=== PATIENT | female | born 2000 | race Hispanic/Latino ===

== ENCOUNTER 2022-07-08 10:00 | Emergency (ER) | payer OTHER ==
[~2022-07-08] VITALS: Ht 165.1 cm; Wt 74.5 kg
[2022-07-08 10:21] LABS: URINE BILIRUBIN - DIPSTICK NEGATIVE (NEGATIVE); URINE BLOOD DIPSTICK LARGE (NEGATIVE); URINE COLOR YELLOW; URINE GLUCOSE - DIPSTICK NEGATIVE (NEGATIVE); URINE KETONE NEGATIVE (NEGATIVE); URINE PH 6.5 (4.5-8.0); URINE PROTEIN - DIPSTICK NEGATIVE (NEG-TRACE); URINE SPECIFIC GRAVITY <=1.005; URINE UROBILINOGEN - DIPSTICK 0.2 E.U./dL (0.2)
[2022-07-08 10:22] LABS: URINE LEUK ESTERASE MODERATE (NEGATIVE); URINE NITRITE - DIPSTICK NEGATIVE (Negative)
[2022-07-08 10:34] LABS: URINE SQUAMOUS EPITHELIAL CELL FEW EPI/hpf (0-FEW); URINE TRANSITIONAL EPI. CELLS RARE hpf
[2022-07-08 10:43] VITALS: BP 121/81
[2022-07-08] MEDS ORDERED: NITROFURANTN100 M2 PO (10:45)
== END 2022-07-08 10:59 | disposition home or self-care (01) | DRG 690 ==
LOC: ED 10:00
PROVIDERS: Family Medicine
DX: N39.0 Urinary tract infection, site not specified (principal)

== ENCOUNTER 2022-11-15 20:21 | Emergency (ER) | payer OTHER ==
[~2022-11-15] VITALS: Ht 165.1 cm; Wt 69.0 kg
[~2022-11-15 20:21] MED LIST: NITROFURANTN100 M2 PO
[2022-11-15 20:36] VITALS: BP 134/82
[2022-11-15 21:00] VITALS: BP 139/76
[2022-11-15 21:39] LABS: URINE BILIRUBIN - DIPSTICK NEGATIVE (NEGATIVE); URINE BLOOD DIPSTICK MODERATE (NEGATIVE); URINE COLOR YELLOW; URINE GLUCOSE - DIPSTICK NEGATIVE (NEGATIVE); URINE KETONE NEGATIVE (NEGATIVE); URINE LEUK ESTERASE NEGATIVE (NEGATIVE); URINE PROTEIN - DIPSTICK NEGATIVE (NEG-TRACE); URINE UROBILINOGEN - DIPSTICK 0.2 E.U./dL (0.2)
[2022-11-15 21:40] LABS: URINE NITRITE - DIPSTICK NEGATIVE (Negative)
[2022-11-15 21:43] LABS: BASO% 0.4 % (0-3); EOS% 2.6 % (0-8); HEMATOCRIT 38.3 % (37.0-47.0); HEMOGLOBIN 12.5 g/dl (12.0-16.0); IMMATURE GRANULOCYTES 0.2 % (0.0-5.0); LYMPH% 29.2 % (15-41); MEAN CELL VOLUME 82.7 fL CALC (80.0-100.0); MEAN CORPUSCULAR HGB CONC 32.6 g/dL CAL (32.0-36.0); MONO% 6.4 % (2-13); NEUT# 6.41 thou/uL (2.00-7.15); NEUT% 61.2 % (42-76); RED BLOOD COUNT 4.63 mill/uL (4.20-5.60)
[2022-11-15 21:45] LABS: URINE RBC 0-2 RBC/hpf (0-5); URINE SQUAMOUS EPITHELIAL CELL FEW EPI/hpf (0-FEW)
[2022-11-15 21:50] LABS: ALBUMIN 4.6 g/dL (3.2-5.0); ALKALINE PHOSPHATASE 88 u/l (38-126); ANION GAP 13 (6-22 (CALC)); BILIRUBIN, TOTAL 0.2 mg/dL (0.02-1.3); BUN 9 mg/dL (8-21); BUN/CREATININE RATIO 13 (12-20 (CALC)); CARBON DIOXIDE 24 mmol/l (22-30); CHLORIDE 106 mmol/l (95-108); CREATININE 0.7 mg/dL (0.5-1.0); GFR FOR AFR.AMER. > 60 ML/MIN (>=60 (CALC)); GFR OTHER RACES > 60 ML/MIN (>=60 (CALC)); SGOT/AST 34 u/l (14-36); SODIUM 138 mmol/l (137-146); TOTAL PROTEIN 8.1 g/dL (6.3-8.2)
[2022-11-16] MEDS ORDERED: NAPROXEN500 MG PO (00:12)
[2022-11-16 00:15] VITALS: BP 134/90
== END 2022-11-16 00:48 | disposition home or self-care (01) | DRG 563 ==
LOC: ED 20:21
PROVIDERS: Emergency Medicine
DX: S43.401A Unspecified sprain of right shoulder joint, initial encounter (principal); V43.52XA Car driver injured in collision with other type car in traffic accident, initial encounter
CPT/HCPCS: Q9967

== ENCOUNTER 2024-05-15 14:39 | Emergency (ER) | payer MEDICAID ==
[2024-05-15] VITALS (10 sets, daily range): BP systolic 92–131; BP diastolic 41–88
[~2024-05-15] VITALS: Ht 165.1 cm; Wt 85.7 kg
[~2024-05-15 14:39] MED LIST changes: +NAPROXEN500 MG PO
[2024-05-15] MEDS ORDERED: ACETAMINOPHEN 325 MG/TAB PO ONE (14:55)
[2024-05-15 15:04] LABS: BASO% 0.4 % (0-3); EOS% 1.9 % (0-8); HEMATOCRIT 41.2 % (37.0-47.0); HEMOGLOBIN 14.1 g/dl (12.0-16.0); IMMATURE GRANULOCYTES 0.1 % (0.0-5.0); LYMPH% 32.6 % (15-41); MEAN CELL VOLUME 81.3 fL CALC (80.0-100.0); MEAN CORPUSCULAR HGB 27.8 pG CALC (26.0-32.0); MEAN CORPUSCULAR HGB CONC 34.2 g/dL CAL (32.0-36.0); MONO% 8.1 % (2-13); NEUT# 5.46 thou/uL (2.00-7.15); NEUT% 56.9 % (42-76); RED BLOOD COUNT 5.07 mill/uL (4.20-5.60); RED CELL DISTRI WIDTH 13.1 % (11.5-15.5)
[2024-05-15 15:04] LABS: URINE BILIRUBIN - DIPSTICK Negative (NEGATIVE); URINE BLOOD DIPSTICK Negative (NEGATIVE); URINE COLOR Yellow; URINE GLUCOSE - DIPSTICK Negative (NEGATIVE); URINE KETONE Negative (NEGATIVE); URINE LEUK ESTERASE Negative (NEGATIVE); URINE NITRITE - DIPSTICK Negative (Negative); URINE PROTEIN - DIPSTICK Negative (NEG-TRACE); URINE SPECIFIC GRAVITY 1.015
[2024-05-15 15:14] LABS: ALBUMIN 4.7 g/dL (3.2-5.0); CREATININE 0.6 mg/dL (0.5-1.0); POTASSIUM 3.7 mmol/l (3.5-5.1); TOTAL PROTEIN 8.2 g/dL (6.3-8.2)
[2024-05-15 15:16] LABS: BILIRUBIN, TOTAL 0.4 mg/dL (0.02-1.3)
== END 2024-05-15 19:07 | disposition home or self-care (01) ==
LOC: ED 14:39
PROVIDERS: Family Medicine
DX: O99.891 Other specified diseases and conditions complicating pregnancy (principal); R30.0 Dysuria; M54.50 Low back pain, unspecified; Z3A.08 8 weeks gestation of pregnancy; Z87.440 Personal history of urinary (tract) infections